=== PATIENT | male | born 1990 | race Caucasian/White ===

== ENCOUNTER 2017-06-29 09:49 | Emergency (ER) | payer OTHER, BC ==
[2017-06-29] MEDS ORDERED: Ondansetron 4 MG/2 ML SDV IVPUSH ONE (10:01)
[2017-06-29] MEDS ORDERED: fentaNYL 100 MCG/2 ML SDV IVPUSH ONE ×2 (10:01→11:26)
--- NOTE | 2017-06-29 10:02 | EDM.PDOC ---
ED HPI GENERAL MEDICAL PROBLEM - General Chief Complaint: ENT Problem Stated Complaint: EYE INJURY Time Seen by Provider: 06/29/17 10:01 - History of Present Illness INITIAL COMMENTS - FREE TEXT/NARRATIVE: 27-year-old male presents to the emergency room with a left eye injury. Patient was working with a dish washer. This bounced back hitting him in the left eye. Patient has had some significant bleeding with this. 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 At this time he is concerned that maybe his eye got knocked out from the dish washer. Patient has several lacerations in his bleeding he is uncertain of his last tetanus shot. He has significant discomfort and nausea and vomiting. Patient had no loss of consciousness immediately or after the event. This occurred probably 15 minutes prior to arrival to the emergency room. Left Eye Pain Score (Numeric/FACES): 5 - Related Data Allergies Allergy/AdvReac Type Severity Reaction Status Date / Time oxycodone Allergy Rash Verified 06/29/17 10:31 Home Meds: Home Meds . [No Known Home Meds] 06/29/17 [History] Past Medical History - Past Health History Medical/Surgical History: Denies Medical/Surgical History Social & Family History - Alcohol Use Days Per Week of Alcohol Use: 0 - Recreational Drug Use Recreational Drug Use: No ED ROS GENERAL - Review of Systems Review Of Systems: See Below Constitutional: Reports: No Symptoms HEENT: Reports: Eye Pain Respiratory: Reports: No Symptoms Cardiovascular: Reports: No Symptoms GI/Abdominal: Reports: Nausea, Vomiting. Denies: Abdominal Pain ED EXAM GENERAL W FULL EYE - Physical Exam Exam: See Below Exam Limited By: Other (Patient is uncomfortable no significant nausea and vomiting) General Appearance: Alert, Mild Distress (From the discomfort nausea and vomiting) Eye Exam: Right Eye: Normal Inspection, Left Eye: Other (Patient has some conjunctival swelling pupil is responsive to light visual lobo intact ocular motion intact) Eyelids: Bilateral: Other (Patient has a significant upper eyelid laceration extending to the medial margin of the eye. He has a much more pronounced laceration on the lower lid two th[address] the way in from the lateral aspect it is uncertain if the underlying structures been disrupted with the lid gently lifted not quite everted he's got an obvious laceration suspect this is communicating with the external laceration of the lower lid) Cornea Exam: Left: Other (Corneal laceration suspected and visualized without flurox) Extraocular Movements: Bilateral: Intact Pupils: Normal Accommodation Head: Atraumatic, Facial Tenderness (Left periorbital area) Neck: Normal Inspection, Supple, Non-Tender, Full Range of Motion. No: Lymphadenopathy (L), Lymphadenopathy (R) Respiratory/Chest: No Respiratory Distress, Lungs Clear, Normal Breath Sounds Cardiovascular: Regular Rate, Rhythm, No Edema Course - Vital Signs Last Recorded V/S: Last Vital Signs Temp 36.0 C 06/29/17 11:10 Pulse 60 06/29/17 11:10 Resp 18 06/29/17 11:10 BP 113/70 06/29/17 11:10 Pulse Ox 98 06/29/17 11:10 - Orders/Labs/Meds Orders: Active Orders 24 hr Category Date Time Status Vaccines to be Administered [RC] PER UNIT ROUTINE Care 06/29/17 10:42 Active Lactated Ringers [Ringers, Lactated] 1,000 ml Med 06/29/17 10:15 Active IV ASDIRECTED Medication Orders Lactated Ringer's (Ringers, Lactated) 1,000 mls @ 125 mls/hr IV ASDIRECTED GEORGETTE Last Admin: 06/29/17 10:17 Dose: 125 mls/hr Meds: Medications Generic Name Dose Route Start Last Admin Trade Name Freq PRN Reason Stop Dose Admin Lactated Ringer's 1,000 mls @ 125 mls/hr 06/29/17 10:15 06/29/17 10:17 Ringers, Lactated IV 125 mls/hr ASDIRECTED GEORGETTE Administration Discontinued Medications Generic Name Dose Route Start Last Admin Trade Name Freq PRN Reason Stop Dose Admin Diphtheria/Tetanus/Acell Pertussis 0.5 ml 06/29/17 10:42 06/29/17 11:30 Adacel IM 06/29/17 10:43 0.5 ml .ONCE ONE Administration Erythromycin 1 gm 06/29/17 11:20 Erythromycin 0.5% Ophth Oint EYELF 06/29/17 11:21 ONETIME ONE Fentanyl 100 mcg 06/29/17 10:01 06/29/17 10:16 Sublimaze IVPUSH 06/29/17 10:02 100 mcg ONETIME ONE Administration Fentanyl 50 mcg 06/29/17 11:26 06/29/17 11:44 Sublimaze IVPUSH 06/29/17 11:27 50 mcg ONETIME ONE Administration Metoclopramide HCl 5 mg 06/29/17 10:36 06/29/17 10:42 Reglan IVPUSH 06/29/17 10:37 5 mg ONETIME ONE Administration Metoclopramide HCl 5 mg 06/29/17 11:26 06/29/17 11:40 Reglan IVPUSH 06/29/17 11:27 5 mg ONETIME ONE Administration Ondansetron HCl 4 mg 06/29/17 10:01 06/29/17 10:13 Zofran IVPUSH 06/29/17 10:02 4 mg ONETIME ONE Administration Proparacaine HCl 0.05 ml 06/29/17 10:40 06/29/17 10:45 Proparacaine 0.5% Ophth Soln EYELF 06/29/17 10:41 3 drop ONETIME ONE Administration Proparacaine HCl Confirm 06/29/17 10:44 06/29/17 10:45 Proparacaine 0.5% Ophth Soln Administered 06/29/17 10:45 Not Given Dose 15 [facility] - Re-Assessments/Exams Free Text/Narrative Re-Assessment/Exam: 06/29/17 11:40 Patient's case was reviewed with Dr. Samuel community organization director at the [facility]. He would like to see the patient in his office at 3:[address] is negative for fracture dislocation or globe foreign bodies early on the patient received Zofran fluids and fentanyl he had his best relief from proparacaine drops. The patient will have erythromycin ointment placed in his eye along with a gauze patch and an eye shield placed secured with tape prior to transfer Departure - Departure Time of Disposition: 11:47 Disposition: Home, Self-Care 01 Clinical Impression: Corneal laceration of left eye, Eyelid laceration, left - Discharge Information Referrals: PCP,None [Primary Care Provider] - Forms: ED Department Discharge Additional Instructions: Go straight to [facility] at [address] in [place]. We will reevaluate your eye and is anticipated that they will repair the lacerations. Return to the emergency room with any questions problems worsening symptoms. Nothing to eat or drink until fully evaluated by ophthalmology - My Orders Last 24 Hours: My Active Orders 06/29/17 10:15 Lactated Ringers [Ringers, Lactated] 1,000 ml IV ASDIRECTED 06/29/17 10:42 Vaccines to be Administered [RC] PER UNIT ROUTINE - Assessment/Plan Last 24 Hours: My Active Orders 06/29/17 10:15 Lactated Ringers [Ringers, Lactated] 1,000 ml IV ASDIRECTED 06/29/17 10:42 Vaccines to be Administered [RC] PER UNIT ROUTINE
[2017-06-29] MEDS ORDERED: Lactated Ringers 1,000 ML IV SCH (10:15)
[2017-06-29] MEDS ORDERED: Metoclopramide 10 MG/2 ML SDV IVPUSH ONE ×2 (10:36→11:26)
[2017-06-29] MEDS ORDERED: Proparacaine 0.5% Ophth Soln 15 ML Bottle EYELF ONE (10:40)
[2017-06-29] MEDS ORDERED: Diphtheria,Pertussis(Acell),Tetanus Vaccine 0.5 ML SDV IM ONE (10:42)
[2017-06-29] MEDS ORDERED: Proparacaine 0.5% Ophth Soln 15 ML Bottle ONE (10:44)
[2017-06-29] MEDS ORDERED: Erythromycin Base 0.5% Ophth Oint 1 GM Tube EYELF ONE (11:20)
--- NOTE | 2017-06-29 11:32 | CT ---
CT facial bones Technique: Multiple axial sections through the facial bones were obtained. Intravenous contrast not utilized. Reconstructed coronal and sagittal images were reviewed. Findings: Soft tissue air identified around the left globe with soft tissue injury. Left globe is slightly smaller than the right globe. Paranasal sinuses are clear. Extraocular muscles appear within normal limits. No fracture is seen. No opaque foreign object is seen. Impression: 1. Soft tissue air surrounding the left globe with soft tissue injury. Left globe is slightly smaller than the right globe. 2. No acute bony abnormality is seen. Diagnostic code #3
== END 2017-06-29 12:17 | disposition home or self-care (01) ==
LOC: JD.ED 09:49
DX: S05.32XA Ocular laceration without prolapse or loss of intraocular tissue, left eye, initial encounter (principal); S01.112A Laceration without foreign body of left eyelid and periocular area, initial encounter; Z88.6 Allergy status to analgesic agent; Z23 Encounter for immunization; W22.8XXA Striking against or struck by other objects, initial encounter; Y99.0 Civilian activity done for income or pay
CPT/HCPCS: 70486; 90471; 90715; 96361; 96374; 96375; 96376; 99285; A9270; J2405; J2765; J3010; J7120; 99284

== ENCOUNTER 2017-07-05 17:40 | Emergency (ER) | payer BC, OTHER ==
--- NOTE | 2017-07-05 18:27 | EDM.PDOC ---
ED HPI GENERAL MEDICAL PROBLEM - General Chief Complaint: Head Injury Stated Complaint: L EYE/HEAD PAIN Time Seen by Provider: 07/05/17 18:27 Source of Information: Reports: Patient - History of Present Illness INITIAL COMMENTS - FREE TEXT/NARRATIVE: Patient is a 27-year-old male who presents ED complaining of left-sided facial pain with concerns of infection. Patient states this past Wednesday had an accident with a cullet crusher and washer causing laceration and also trauma to his eye. He was seen by a pointing machine operator in [place] with repair of the eyelids. Left eye vision remains blurry since the surgery. States the pupil is dilated and unable to focus at this point. Unclear if he would lose his vision or not. Patient states today he developed increasing pressure to the left side of his face that started approximately 8:00 this morning and has progressively gotten worse throughout the course the day. He presents to the ED wearing sunglasses because he has photophobia since surgery. He is mildly nauseated. Questions that there is not a deep infection within his face. He did contact the camouflage specialist Dr. Sibley with instructions come to the ED to rule out infection. Patient has not had a documented fever. He has not taken any [id number] pain meds or prescription pain medications today. In addition presents to the E.D. complaining of swelling, pain, increased warmth , and redness to the right medial biceps. Patient states IV was started in the right arm during examination in the E.D. a wk ago and during surgery. States noted swelling that has worsened. No history of PE/DVT. Denies CP or SOB. Treatments PRODUCTION CLERKS SUPERVISOR: Reports: Acetaminophen Other Treatments PRODUCTION CLERKS SUPERVISOR: 1400 Left Face Pain Score (Numeric/FACES): 8 - Related Data Allergies Allergy/AdvReac Type Severity Reaction Status Date / Time hydrocodone Allergy Rash Verified 07/05/17 17:56 Home Meds: Home Meds Acetaminophen/oxyCODONE [Percocet 325-5 MG] 1 - 2 tab PO Q6H PRN #20 tablet [Rx] Doxycycline [Vibramycin] 100 mg PO Q12HR #14 cap 07/05/17 [Rx] Ondansetron [Zofran ODT] 4 mg PO Q6H PRN #12 tab.dis 07/05/17 [Rx] Prednisone [IJD: predniSONE] 40 mg PO WITHBREAKFAST #10 tab 07/05/17 [Rx] Past Medical History - Past Health History Medical/Surgical History: Denies Medical/Surgical History Social & Family History - Tobacco Use Smoking Status *Q: Light Tobacco Smoker Years of Tobacco use: 5 Packs/Tins Daily: 0.1 - Alcohol Use Days Per Week of Alcohol Use: 0 - Recreational Drug Use Recreational Drug Use: No ED ROS GENERAL - Review of Systems Review Of Systems: ROS reveals no pertinent complaints other than HPI. ED EXAM, HEAD INJURY - Physical Exam Exam: See Below Exam Limited By: No Limitations General Appearance: Alert, WD/WN, Mild Distress Head: Other (Laceration to the upper and lower eyelids with sutures in place. With only minimal redness present. No purulent drainage noted from the eye. On examination the eye the left pupil is dilated and nonreactive to light. He does have subconjunctival hemorrhage to the medial aspect of the eye. No increased swelling noted to the surrounding tissues on examination. Pain with palpation along the facial nerve, cheek, jawline. Pain with opening and closing his jaw.) Ears: Normal External Exam, Normal Canal, Hearing Grossly Normal, Normal TMs Nose: Normal Inspection, Normal Mucousa, No Blood Throat/Mouth: Normal Inspection, Normal Oropharynx, Normal Voice, No Airway Compromise, Trismus Neck: Full Range of Motion, Normal Alignment, Normal Inspection, Other ( Tenderness along the occipital and mandible the fluids. No lymphadenopathy.) Respiratory: No Respiratory Distress, Lungs Clear, Normal Breath Sounds, No Accessory Muscle Use Cardiovascular: Normal Peripheral Pulses, Regular Rate, Rhythm, No Murmur Extremities: Other (In addition patient has increased swelling to the medial aspect of the right bicep proximal to the elbow. Patient states he had IV to the antecubital space this past Wednesday. States over the past 2 days has noticed increased swelling and redness. Worsening pain noted. Increased warmth noted. No drainage. No history of DVTs in the past.) Neurologic: No Motor/Sensory Deficits, Alert, Normal Mood/Affect, Oriented x 3 Skin: Normal Color, Warm/Dry Course - Vital Signs Last Recorded V/S: Last Vital Signs Temp 98.9 F 07/05/17 17:56 Pulse 52 L 07/05/17 17:56 Resp 16 07/05/17 17:56 BP 124/76 07/05/17 17:56 Pulse Ox 98 07/05/17 17:56 - Orders/Labs/Meds Labs: Laboratory Tests 07/05/17 07/05/17 Range/Units 19:00 19:00 WBC 8.33 (4.23-9.07) K/mm3 RBC 5.39 (4.63-6.08) M/mm3 Hgb 15.9 (13.7-17.5) gm/L Hct 45.8 (40.1-51.0) % MCV 85.0 (79.0-92.2) fl MCH 29.5 (25.7-32.2) pg MCHC 34.7 (32.2-35.5) g/dl RDW Std Deviation 41.7 (35.1-43.9) fL Plt Count 208 (163-337) K/mm3 MPV 10.4 (9.4-12.3) fl Neut % (Auto) 68.6 H (34.0-67.9) % Lymph % (Auto) 18.0 L (21.8-53.1) % Rowan % (Auto) 9.0 (5.3-12.2) % Eos % (Auto) 3.8 (0.8-7.0) Baso % (Auto) 0.4 (0.1-1.2) % Neut # (Auto) 5.71 H (1.78-5.38) K/mm3 Lymph # (Auto) 1.50 (1.32-3.57) K/mm3 Rowan # (Auto) 0.75 (0.30-0.82) K/mm3 Eos # (Auto) 0.32 (0.04-0.54) K/mm3 Baso # (Auto) 0.03 (0.01-0.08) K/mm3 Sodium 143 (136-145) mEq/L Potassium 4.0 (3.5-5.1) mEq/L Chloride 105 (98-107) mEq/L Carbon Dioxide 29 (21-32) mEq/L Anion Gap 13.0 (5-15) BUN 11 (7-18) mg/dL Creatinine 1.2 (0.7-1.3) mg/dL Est Cr Clr Drug Dosing 89.46 mL/min Estimated GFR (MDRD) > 60 (>60) mL/min BUN/Creatinine Ratio 9.2 L (14-18) Glucose 103 (74-106) mg/dL Calcium 9.6 (8.5-10.1) mg/dL Total Bilirubin 0.8 (0.2-1.0) mg/dL AST 19 (15-37) U/L ALT 36 (16-63) U/L Alkaline Phosphatase 61 (46-116) U/L C-Reactive Protein < 0.2 (<1.0) mg/dL Total Protein 7.6 (6.4-8.2) g/dl Albumin 4.1 (3.4-5.0) g/dl Globulin 3.5 gm/dL Albumin/Globulin Ratio 1.2 (1-2) Meds: Medications Discontinued Medications Generic Name Dose Route Start Last Admin Trade Name Freq PRN Reason Stop Dose Admin Doxycycline Hyclate 100 mg 07/05/17 21:01 07/05/17 21:11 Vibramycin PO 07/05/17 21:02 100 mg ONETIME ONE Administration Hydromorphone HCl 1 mg 07/05/17 18:47 07/05/17 19:05 Dilaudid IVPUSH 07/05/17 18:48 1 mg ONETIME ONE Administration Hydromorphone HCl 1 mg 07/05/17 21:03 07/05/17 21:12 Dilaudid IVPUSH 07/05/17 21:04 1 mg ONETIME ONE Administration Sodium Chloride 1,000 mls @ 250 mls/hr 07/05/17 18:47 07/05/17 19:04 Normal Saline IV 07/05/17 22:46 250 mls/hr ONETIME ONE Administration Iopamidol 80 ml 07/05/17 19:11 07/05/17 19:31 Isovue-300 (61%) IVPUSH 07/05/17 19:12 80 ml ONETIME ONE Administration Ketorolac Tromethamine 30 mg 07/05/17 21:04 07/05/17 21:12 Toradol IVPUSH 07/05/17 21:05 30 mg ONETIME ONE Administration Ondansetron HCl 4 mg 07/05/17 18:47 07/05/17 19:05 Zofran IVPUSH 07/05/17 18:48 4 mg ONETIME ONE Administration Prednisone 40 mg 07/05/17 21:05 07/05/17 21:12 Prednisone PO 07/05/17 21:06 40 mg ONETIME ONE Administration Proparacaine HCl 1 ml 07/05/17 19:46 07/05/17 20:36 Proparacaine 0.5% Ophth Soln EYELF 07/05/17 19:47 1 drop ONETIME ONE Administration Sodium Chloride 10 ml 07/05/17 18:47 07/05/17 19:05 Saline Flush FLUSH 10 ml ASDIRECTED PRN Administration Keep Vein Open - Re-Assessments/Exams Free Text/Narrative Re-Assessment/Exam: IV established with normal saline, Dilaudid 1 mg IVP, and Zofran 4 mg IVP. Initial lab studies include CBC, chem 14, CRP, CT of the maxillofacial bones, and ultrasound of the right arm. 07/05/17 19:45 C BC and chemistry panel essentially normal. CRP less than 0.2. CT the maxillofacial bones impression: Slight asymmetry and globes size between right and left sides. This is stable from prior exam. Resolution of soft tissue air around the left globe as noted on the prior study. No abnormal areas of enhancement. No fluid collection of abscess are seen. Proparacaine administered to the left eye with tonometry indicatin was the average. [address] Almanzar ophthalmologists that performed the surgery and is following the patient. Suggested starting the patient on oral antibiotic and prednisone to decrease any inflammation present and treat for any potential infection. Appt scheduled for this coming Wednesday willl keep as scheduled. Patient will call sooner if any issues. Ultrasound of the right arm impression: Clot within the basilic vein. Other veins within the right upper extremity are normal. This is superficial thrombophlebitis treated with warm compresses and NSAIDs. There is some mild redness noted thus this will be treated if skin infection present with doxycycline. Patient to have pain. Ordered Dilaudid 1 mg IVP, Toradol 30 mg IVP, doxycycline 100 mg by mouth, and prednisone 40 mg by mouth. Will discharge patient home with instructions as documented once pain therapy has taken effect. Departure - Departure Time of Disposition: 21:15 Disposition: Home, Self-Care 01 Condition: Good Clinical Impression: Pressure and pain of left side of face, Thrombophlebitis arm - Discharge Information Prescriptions: Doxycycline [Vibramycin] 100 mg PO Q12HR #14 cap Acetaminophen/oxyCODONE [Percocet 325-5 MG] 1 - 2 tab PO Q6H PRN #20 tablet PRN Reason: Pain (Severe 7-10) Ondansetron [Zofran ODT] 4 mg PO Q6H PRN #12 tab.dis PRN Reason: Nausea/Vomiting Prednisone [IJD: predniSONE] 40 mg PO WITHBREAKFAST #10 tab Referrals: PCP,None [Primary Care Provider] - Forms: ED Department Discharge Additional Instructions: As discussed keep applying the bacitracin to the eyelids and eyedrops as prescribed by Dr. Almanzar. We have also started you on doxycycline 100 mg twice a day. This will treat for any potential infection that may be present to the eyelids and also right upper arm. For pain take Percocet 1-2 tabs every 6 hours as needed. In addition will have a circumflex taking prednisone 40 mg every day for the next 5 days. He also had thrombophlebitis to the right upper arm this is superficial blood clot requiring avocational warm compresses 6 times a day, 30 minutes in duration. Take ibuprofen 600 mg every 6 hours with food and water. Keep appointment with Dr. Almanzar for this coming Wednesday. Please return back to ED if you develop any new or worsening symptoms as discussed. Do not drive this evening since receiving a sedative medication.
[2017-07-05] MEDS ORDERED: Sodium Chloride 0.9% 10 ML Syringe FLUSH PRN (18:47)
[2017-07-05] MEDS ORDERED: Ondansetron 4 MG/2 ML SDV IVPUSH ONE (18:47)
[2017-07-05] MEDS ORDERED: Sodium Chloride 0.9% 1,000 ML IV ONE (18:47)
[2017-07-05] MEDS ORDERED: HYDROmorphone 1 MG/ML Syringe IVPUSH ONE ×2 (18:47→21:03)
[2017-07-05] MEDS ORDERED: Iopamidol 612 MG/ML 100 ML Bottle IVPUSH ONE (19:11)
[2017-07-05] MEDS ORDERED: Proparacaine 0.5% Ophth Soln 15 ML Bottle EYELF ONE (19:46)
--- NOTE | 2017-07-05 19:56 | CT ---
CT facial bones Technique: Multiple axial sections were obtained through the facial structures. Intravenous contrast was utilized. Comparison: Previous CT facial bone study of 06/29/17 performed without contrast. Findings: Soft tissue air around the left globe has resolved. Left globe remains slightly smaller than the right globe. Mild soft tissue swelling remains. Retrobulbar structures are within normal limits. No fluid collections are seen to indicate an abscess. Surrounding bony structures remain intact. Paranasal sinuses remain clear. Impression: 1. Slight asymmetry in globe size between right and left sides. This is stable from prior exam. 2. Resolution of soft tissue air around the left globe as noted on prior study. 3. No abnormal areas of enhancement. No fluid collections of abscess are seen. 4. Mild soft tissue swelling remains around the left orbit. Diagnostic code #2
--- NOTE | 2017-07-05 20:49 | US ---
Right upper extremity venous ultrasound: Duplex and color flow imaging was obtained of the right internal jugular, subclavian, axillary, brachial, basilic, cephalic, radial and ulnar veins. Clot identified within the basilic vein. Other veins show normal compression and phasic flow. Impression: 1. Clot within the basilic vein. Other veins within the right upper extremity appear patent. Diagnostic code #3
[2017-07-05] MEDS ORDERED: Doxycycline 100 MG Cap PO ONE (21:01)
[2017-07-05] MEDS ORDERED: Ketorolac 30 MG/ML SDV IVPUSH ONE (21:04)
[2017-07-05] MEDS ORDERED: predniSONE 20 MG Tab PO ONE (21:05)
== END 2017-07-05 21:35 | disposition home or self-care (01) ==
LOC: JD.ED 17:40
DX: I80.8 Phlebitis and thrombophlebitis of other sites (principal); R51 Headache; F17.210 Nicotine dependence, cigarettes, uncomplicated; Z88.5 Allergy status to narcotic agent
CPT/HCPCS: 36415; 70487; 80053; 85025; 86140; 93971; 96361; 96374; 96375; 96376; 99284; A9270; J1170; J1885; J2405; J7040; J7050; Q9967

== ENCOUNTER 2017-12-10 17:20 | Emergency (ER) | payer BC, OTHER ==
[2017-12-10] MEDS ORDERED: Lidocaine 1% 10 ML MDV INJECT ONE (17:38)
--- NOTE | 2017-12-10 18:24 | EDM.PDOC ---
ED HPI GENERAL MEDICAL PROBLEM - General Chief Complaint: Laceration Stated Complaint: LT THUMB LAC Time Seen by Provider: 12/10/17 17:36 Source of Information: Reports: Patient History Limitations: Reports: No Limitations - History of Present Illness INITIAL COMMENTS - FREE TEXT/NARRATIVE: The patient presents with a cut to his left thumb. He was using a band saw cutting a bolt and the bolt slipped and he cut his left thumb. It went through the nail. He still can feel the tip. He is right handed. His tetanus is up to date. Onset: Sudden Duration: Minutes: Location: Reports: Upper Extremity, Left (thumb) Quality: Reports: Sharp Severity: Mild Improves with: Reports: None Worsens with: Reports: None Context: Reports: Activity (He was cutting a bolt with a band saw) Associated Symptoms: Reports: No Other Symptoms Left Hand Pain Score (Numeric/FACES): 3 - Related Data Allergies Allergy/AdvReac Type Severity Reaction Status Date / Time hydrocodone Allergy Rash Verified 12/10/17 17:29 Home Meds: Home Meds Cephalexin [Keflex] 500 mg PO Q6HR #28 capsule 12/10/17 [Rx] Past Medical History - Past Health History Medical/Surgical History: Denies Medical/Surgical History Social & Family History - Tobacco Use Smoking Status *Q: Never Smoker Years of Tobacco use: 5 Packs/Tins Daily: 0.1 - Caffeine Use Caffeine Use: Reports: Soda - Alcohol Use Days Per Week of Alcohol Use: 0 - Recreational Drug Use Recreational Drug Use: No ED ROS GENERAL - Review of Systems Review Of Systems: See Below Constitutional: Reports: No Symptoms HEENT: Reports: No Symptoms Respiratory: Reports: No Symptoms Cardiovascular: Reports: No Symptoms Endocrine: Reports: No Symptoms GI/Abdominal: Reports: No Symptoms : Reports: No Symptoms Musculoskeletal: Reports: Other (Cut to left thumb) ED EXAM, SKIN/RASH Exam: See Below Exam Limited By: No Limitations General Appearance: Alert, No Apparent Distress Ears: Normal External Exam Nose: Normal Inspection Head: Atraumatic, Normocephalic Neck: Normal Inspection Respiratory/Chest: No Respiratory Distress Extremities: Other (2cm laceration to the dorsal aspect of the left thumb that goes into the nail. Good sensation and capillary refill distally.) ED SKIN PROCEDURES - Laceration/Wound Repair Left Finger Lac/Wound length In cm: 2 Appearance: Subcutaneous, Linear Distal NVT: Neuro & Vascular Intact Anesthetic Type: Local Local Anesthesia - Lidocaine (Xylocaine): 1% Plain Skin Prep: Saline Exploration/Debridement/Repair: Wound Explored, In a Bloodless Field, Explored to Base Closed with: Sutures Suture Size: 4-0 # of Sutures: 2 Suture Type: Nylon, Interrupted, Simple Tetanus Status Addressed: Yes Complications: No Course - Vital Signs Last Recorded V/S: Last Vital Signs Temp 98.4 F 12/10/17 17:26 Pulse 85 12/10/17 17:26 Resp 18 12/10/17 17:26 BP 122/88 12/10/17 17:26 Pulse Ox 100 12/10/17 17:26 - Orders/Labs/Meds Orders: Active Orders 24 hr Category Date Time Status Fingers Thumb Lt FA [CR] Stat Exams 12/10/17 17:38 Taken Meds: Medications Discontinued Medications Generic Name Dose Route Start Last Admin Trade Name Freq PRN Reason Stop Dose Admin Lidocaine HCl 10 ml 12/10/17 17:38 12/10/17 17:47 Xylocaine 1% INJECT 12/10/17 17:39 10 ml ONETIME ONE Administration - Re-Assessments/Exams Free Text/Narrative Re-Assessment/Exam: 12/10/17 18:23 I did an x-ray and it appears he did get chip the bone. I sutured the laceration. I will get him on keflex. Departure - Departure Time of Disposition: 18:30 Disposition: Home, Self-Care 01 Condition: Good Clinical Impression: Laceration of left thumb Qualifiers: Encounter type: initial encounter Damage to nail status: without damage Foreign body presence: without foreign body Qualified Code(s): S61.012A - Laceration without foreign body of left thumb without damage to nail, initial encounter Fracture of thumb, left, open Qualifiers: Encounter type: initial encounter Phalanx: proximal Fracture alignment: nondisplaced Qualified Code(s): S62.515B - Nondisplaced fracture of proximal phalanx of left thumb, initial encounter for open fracture - Discharge Information Prescriptions: Cephalexin [Keflex] 500 mg PO Q6HR #28 capsule Referrals: PCP,None [Primary Care Provider] - Additional Instructions: Soak your finger in warm soapy water 2 times per day and apply antibiotic ointment after. Take the keflex 4 times per day for 7 days. Have the sutures removed in 7 to 10 days. Please return if you see any signs of infection such as redness, swelling, drainage or pain. - My Orders Last 24 Hours: My Active Orders 12/10/17 17:38 Fingers Thumb Lt FA [CR] Stat - Assessment/Plan Last 24 Hours: My Active Orders 12/10/17 17:38 Fingers Thumb Lt FA [CR] Stat
--- NOTE | 2017-12-12 07:56 | CR ---
Left thumb: Three views of the left thumb were obtained. Comparison: No prior thumb study. Small opacities are seen within the soft tissues of the distal thumb. Uncertain if these are due to small bony fragments as there is a small bony defect within the distal phalanx or represent other foreign bodies. There is no complete fracture being seen. Joint spaces are preserved. Soft tissue swelling is noted. Impression: 1. Small opacities within the soft tissues. Uncertain how much of this represents small bony fragments versus real foreign bodies. 2. Other findings as noted above. Diagnostic code #3
== END 2017-12-10 18:31 | disposition home or self-care (01) ==
LOC: JD.ED 17:20
DX: S62.515B Nondisplaced fracture of proximal phalanx of left thumb, initial encounter for open fracture (principal); Z88.5 Allergy status to narcotic agent; W31.2XXA Contact with powered woodworking and forming machines, initial encounter
CPT/HCPCS: 12001; 73140-26-FA; 73140-FA; 99283-25